=== PATIENT | male | born 1965 | race African-American/Black ===

== ENCOUNTER 2020-03-22 22:40 | Emergency (ER) | payer OTHER ==
[~2020-03-22] VITALS: Ht 165.1 cm; Wt 70.0 kg
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
[2020-03-22] MEDS ORDERED: ACETAMINOPHEN 500 MG TABLET PO ONE (23:15)
[2020-03-22] MEDS ORDERED: LIDOCAINE/EPI/TETRACAINE TOPICAL GEL 3 ML. TP ONE (23:15)
[2020-03-22] MEDS ORDERED: oxyCODONE IR 5 MG TABLET PO PRN (23:30)
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
--- NOTE | 2020-03-23 02:10 | RAD ---
EXAM: XR ELBOW COMPLETE_RIGHT 3+ VIEWS 03/23/2020 12:34 AM CLINICAL INDICATION: Right elbow pain, trauma COMPARISON: None TECHNIQUE: 3 views of the right elbow FINDINGS: No acute fracture. Alignment is normal. Joint spaces are maintained. No joint effusion or soft tissue abnormality. IMPRESSION: Normal right elbow radiograph. Electronically signed by: Ghazala Gastelum MD (03/23/2020 2:07 AM) [id number]
[2020-03-23] MEDS ORDERED: HYDR-2155 PO (02:11)
[2020-03-23] MEDS ORDERED: CEPH500C PO (02:11)
[2020-03-23] MEDS ORDERED: DIPH,PERTUSS(ACELL),TET VAC/PF 0.5 ML SYRINGE. VAX IM ONE (02:30)
[2020-03-23] MEDS ORDERED: MORPHINE SULFATE 4 MG/ML DISP.SYRIN. IM ONE (02:30)
[2020-03-23] MEDS ORDERED: CEPHALEXIN 250 MG CAPSULE PO ONE (02:30)
[2020-03-23 02:43] VITALS: BP 127/91
== END 2020-03-23 02:45 | disposition short-term general hospital (02) ==
LOC: EEVIPCON 22:40 → ER 22:40
DX: S22.32XA Fracture of one rib, left side, initial encounter for closed fracture (principal); S01.111A Laceration without foreign body of right eyelid and periocular area, initial encounter; S61.213A Laceration without foreign body of left middle finger without damage to nail, initial encounter; S05.11XA Contusion of eyeball and orbital tissues, right eye, initial encounter; M25.521 Pain in right elbow; M79.604 Pain in right leg; M79.642 Pain in left hand; Y08.89XA Assault by other specified means, initial encounter; Y93.89 Activity, other specified; Y92.89 Other specified places as the place of occurrence of the external cause; Y99.8 Other external cause status
CPT/HCPCS: 12001; 12013; 70450; 70486; 71046; 73080; 73130; 73590; 90471; 90715; 96372; 99285; J2270